=== PATIENT | female | born 1955 | race Caucasian/White ===

== ENCOUNTER 2020-03-24 13:00 | Outpatient (AMB) | payer MEDICARE, SELFPAY ==
[2020-03-24 13:00] VITALS: BMI 18.1
--- NOTE | 2020-03-25 12:07 | PR.OPPALCARP ---
OP Palliative Care List Name, Facility and location of PCP: [facility]: Nuno Cheatham PA-C [address] [place] [address] Patient would like more on Advance Directive: No Prognosis: Fair Advanced Care plan discussed: Yes Who patient wants involved in care decisions: Patient has named her [id number]-mqy, Krysta Avalos (phone: [phone]), as her primary medical decision maker in the even that patient is too ill or impaired to make medical decisions for herself. In the even that Krysta Avalos is not available, patient has agreed for her son, Uzair Romo (phone: [phone]), to be her secondary medical decision maker. Primary Medical Surrogate Decision Maker?: Yes Existing Advance Directive: Yes POLST Form: Yes Comments Additional Comments: Patient has an ADVDIR and POLST. Patient has named her vyyuyl-wf-tkx, Krysta Avalos (phone: [phone]), as her primary medical decision maker in the even that patient is too ill or impaired to make medical decisions for herself. In the even that Krysta Avalos is not available, patient has agreed for her son, Uzair Romo, to be her secondary medical decision maker. Patient continues to indicate in her POLST that she is a DNR/DNI, she only wants comfort-focused treatment, if the prognosis is poor, and no feeding tubes. Primary Caregiver: Self. Caregivers phone number: N/A Caregivers address: N/A List Name, Facility and location of PCP: [facility]: Nuno Cheatham PA-C [address] [place] [address] Patient Diagnosis: Breast Cancer Prognosis: Fair Current goal of care: Life-prolonging Mental Status: Alert and Oriented Coping Status: Coping well Emotional Status: Euthymic Learning needs: Motivational Home situation: Patient continues to live alone in company of her two dogs. Support System: Fair Financial Status: Adequate Care Conf Coordinator: Nohemi Herrmann date/time/location: On 03/24/2019, Palliative Care meeting took place in [facility] conference room at 1304. Patient Diagnosis: Breast Cancer Purpose of meeting: Palliative Care Follow Up/Symptoms Management Participants in meeting and relationship: Gaby James, patient Dr. Chavo Russo, Oncologist Shruti Brown, RN Nohemi Zayas, KRYSTIN How are patients wishes known: Advance Health Care Direc and Patient cognitive/verbal Who is the decision maker for the patient: Patient Issues addressed: Pain Management Medication Management ADVDIR/POLST Coping Mechanism Appetite Sleep Energy Level. Discussion/Outcomes/Follow-up: This is 65 year-old , female, who presented to his Palliative Care follow up meeting via telephone conference. Involved in the conversation was patient, Oncologist, Dr. Russo; Palliative Care Registered Nurse, Shruti, and covering Jet Ski Mechanic, Nohemi. Shruti introduced Nohemi to patient due to Palliative Care Licensed Clinical Jet Ski Mechanic, Myranda, is out on medical leave. Patient was agreeable to speak to new bilingual social worker. Five years ago, patient was diagnosed with breast cancer. Patient did her treatments and was able to be in remission. Patient just updated Palliative Care Team that she has to restart chemotherapy and is not too happy about it. Patient reports that prior to each chemotherapy treatment, she will be doing blood work. Patient will be doing chemotherapy about once per week. Per patient, Dr. Harmon is in charge of her chemotherapy regimen. Patient?s PCP is Nuno Cheatham PA-C, at [facility]. Patient reports that she has not seen her PCP in over a year due to not having any major needs. Patient reports that she attempts to continue to be independent with most of her ADL?s. Patient reports that her aqpshcjs-yy-mid helps her about once per week with housekeeping chores. Patient has a walker, wheelchair, and crutches to use, if she feels too ill and has unsteady gait. Patient reports that her shortness of breath has increased when walking from car to doctors? offices. Patient believes that her shortness of breath is due to the air quality of [place]. Patient reports that it takes her 10 minutes to completely recover her breath. Patient does have some coughing episodes. Patient reports that her pain is at a 2, if she is not moving. Patient reports that her pain is continuous and radiates from hip to rodriguez or femur. Patient still believes that she is able to control it with her pain medication. Patient reports that her appetite is okay. She is not able to eat very well due to food taste. Patient reports that she is trying to eat her favorite foods at this time because she does not want to lose more weight. She currently weighs 109 pounds. Patient denies any vomiting, diarrhea, constipation, or nausea at this time. Patient was recently informed to increase Potassium foods due to her levels being low. At this time, patient does not want to speak to a RD due to wanting to see if she can control it on her own. Patient reports that her sleeping schedule is a ?hit or miss;? she explains that it depends in her body pain. Patient reports that she receives 4-5 hours of continuous sleep. Patient acknowledges that she has had sleeping issues since 1985. Patient reports that her energy level also depends on her body pain. Patient is usually at a 5 (1-10 scale); however, once in a while, she will feel at an 8 or 10. Patient has been able to recognize her body limitations, and is aware that the most she should be doing is 3-4 activities per day. Patient continues to live alone in company of her two dogs. Patient reports that her two years ago. Patient continues to receive visits from son, Uzair, and his . Patient did report that her daughter was killed in a car accident. Patient reports that she has 5 siblings; one of her sisters is , one brother lives in [place] and her other brother is handicapped and lives in [place]. Patient reports that her support system is formed of her son, gmccaupf-iv-lpo, adult grandchildren, friends, neighbors, and pharmacist. Patient reports that if she needs groceries or anything from the store, she can obtain a ride from neighbors. Patient reports that prior to retiring and receiving SSA. She worked for [employer] and [employer]. Her highest education level was high school and completed a few college classes. Patient reports that with her current income she is able to cover her basic needs. Patient?s son is her main transportation source, but she also has friends who provide her with rides. Patient was awake, alert and oriented x3 during call. Patient?s mood was within normal. Her thought process was congruent with mood, cognition, and judgment. Patient?s attitude was pleasant and cooperative through phone call. Patient is Serbian speaking. She was able to effectively communicate and advocate for herself. Patient reports that her coping mechanisms include talking to her friends and family, coloring, reading, puzzling, crotchet activities. Patient reports no mental breakdowns. Patient reports that she is aware of her feelings and knows that journaling is the only way to help her stabilize her mood. Patient reports that when she found out about restarting chemotherapy, she did journal about 2-3 pages. Patient reports that if she feels an immense amount of pain, she sometimes wishes she was . Patient denies having a plan to kill herself, and reports that she thinks this way, but would never kill herself. Patient denies any hallucinations. Patient denies any use of alcohol or nicotine. Patient reports smoking 2-3 puffs of marijuana; this helps her with increasing her appetite and relaxing in order to sleep. Patient has an ADVDIR and POLST. Patient has named her inciqg-zw-jec, Krysta Avalos (phone: [phone]), as her primary medical decision maker in the even that patient is too ill or impaired to make medical decisions for herself. In the even that Krysta Avalos is not available, patient has agreed for her son, Uzair Romo, to be her secondary medical decision maker. Patient continues to indicate in her POLST that she is a DNR/DNI, she only wants comfort-focused treatment, if the prognosis is poor, and no feeding tubes. For more information regarding the medical aspect and medication management, please see Shruti?s assessment. Tenative date for F/U Patient family meeting: April 2020 Advanced Directive: Yes POLST Form: Yes Primary Medical Surrogate Decision Maker?: Yes List Name, Facility and location of PCP: [facility]: Nuno Cheatham PA-C [address] [place] [address] *CWC Office Visit complete CWC Offive Visit Complete CWC Visit Complete?: No
--- NOTE | 2020-03-26 11:02 | PR.OPPALCARP ---
Vital Signs 03/24/20 13:00 Height 1.65 m Height Method Stated Weight 49.442 kg Weight Measurement Method Stated by Patient BMI 18.1 Oxygen Delivery Method Room Air Comment Patient states that pain is 2 out of 10; Dr. Russo made aware. OP Palliative Care List Name, Facility and location of PCP: [facility] Review of symptoms: appetite; sleep issues; low energy How would you rate your diet: Fair Do you have any of the following that interfere w/eating: Things taste funny Misc Comments: Called at 1 pm; Called Dr. Russo at 2:09 pm; Conference call ended 1:05 pm Email address: none Telephone conference call was done due to no face to face appointments occurring at this time. Patient?s primary care doctor is Nuno Cheatham and uses [facility] on [address]. Patient states that she has not seen her PCP in a year and needs to make an appointment. Patient stated that the last Dr. Harmon appointment was on 03/09/2020. Patient last did blood work yesterday (03/23/2020). Patient states that weighs 109 pounds and is 5?5? tall. Patient does not use oxygen at this time. Patient reported pain level to be 2 out of 10 that is mostly to the right leg, in between her knee and hip; which is stabbing and comes and goes. Patient stated that she no longer takes her oral chemo pill and that now she has to have chemo infusions. Patient reports that she goes once a week for her chemo now. Patient stated that her first chemo treatment was last week. Patient also stated that 2 nausea medications; ondansetron-ODT and Compazine. Verbal head to toe assessment was completed with patient over the phone. Patient states that she has shortness of breath only while walking outside and believes it to be due to the air quality. Patient states that it takes 10 minutes to recover. Patient states that she has an occasional cough to clear her throat and that it is not productive. Patient states that she does not have any skin issues except by dry skin. Patient states that she has no swelling to her extremities. Patient states that she tries to wrap her left arm but that she needs to go to [facility] to get a new wrap for her arm due to her old one is wearing out. Prognosis: Fair Co-Morbitities: Cancer List Name, Facility and location of PCP: [facility] Patient Diagnosis: Metastatic breast cancer; bone and stomach Prognosis: Fair Care Conf Coordinator: Shruti Herrmann date/time/location: 03/24/2020 at 1 pm in the [facility] conference room on the conference phone Patient Diagnosis: Metastatic breast cancer; bone and stomach Purpose of meeting: Palliative care follow up appointment/symptom management Participants in meeting and relationship: Gaby James, Patient KRYSTIN Dan RN Dr. Chavo Russo joined conference call at the end of the discussion with the patient. How are patients wishes known: Patient cognitive/verbal Who is the decision maker for the patient: Patient Issues addressed: appetite; sleep issues; low energy Discussion/Outcomes/Follow-up: Patient reported that her appetite is ?hit and miss?. Yesterday she stated that it was really good but then today it is poor. She tried to eat a half sandwich today, ate a little bit of it and then gave the rest to her dogs. Patient stated that she would try to eat things and is interested in speaking to a dietitian at the next meeting. Patient states that she has nausea but no vomiting. Patient reported that the last bowel movement that she had was this morning and she does not deal with any constipation or diarrhea. Patient also reported that she stays on top of her constipation by eating fruit. Patient reported that it is also a ?hit and miss? with her sleep, stating that she has had sleep problems since 1985. Patient reports that it is either sleeping 6 hours straight or she is fighting to go to sleep. Patient states that her energy level is 5 on a scale of 1 to 10, with 10 being the best amount of energy a person could have. Patient reports that she does have 8-9 out of 10 of energy sometimes but is very rare. Patient stated that she was told that her cancer had gotten worse in her lung and her bones and that it had spread to her stomach now which is why she has to have chemo again. Patient reported that she was not having any real issue yet with the chemo but does say that with eating that she either has no taste or that food just doesn?t taste right. Communication to other healthcare professionals: Made Dr. Russo aware of the patient?s issues. Please see KRYSTIN Song, note for her recommendations for Dr. Russo. Review of symptoms management: Yes Symptom management recommnedations: See discussion Chart updated to reflect care plan: Yes Tenative date for F/U Patient family meeting: April 2020 List Name, Facility and location of PCP: Puja Vincent *CWC Office Visit complete CWC Offive Visit Complete CWC Visit Complete?: Yes
== END 2020-03-24 14:15 | disposition home or self-care (01) ==
LOC: HODCWC 14:40
PROVIDERS: PCP Physician Assistant Medical; Referring Provider Physician Assistant Medical; Visit Provider Physician Assistant Medical
DX: Z51.5 Encounter for palliative care (principal)